=== PATIENT | male | born 1975 | race Caucasian/White ===

== ENCOUNTER 2022-09-14 05:54 | Observation (INO) ==
--- NOTE | 2022-09-09 12:07 | Anesthesiology Consultation ---
Date of Service September 09, 2022 Assessment & Plan (1) Encounter for pre-operative examination: COVID screening: Per assessment on 09/09: No known COVID-19 positive contacts or current COVID-19 related symptoms. Travel screen negative. At surgeon discretion if preop Covid testing being done. Chart Review Chart Review: Acceptable Risk for Surgery and Patient NOT seen in Pre Admission Testing History Surgery Operation Date: 09/14/22 10:15 Proposed Procedures p C6-C7 Anterior Cervical Discectomy and Fusion, Spinal Cord Monitoring - Rikki Gan DO Height/Weight Height: 5 ft 7 in Weight: 83.915 kg Allergies Allergy/AdvReac Type Severity Reaction Status Date / Time ketorolac [From Toradol] Allergy Mild Rash Verified 09/09/22 10: tramadol Allergy Mild Rash Verified 09/09/22 10:22 bee venom protein (honey bee) Allergy Unknown Unknown, Verified 09/09/22 12:04 childhood reaction Medications Home Medications Medication Instructions Recorded Confirmed Last Taken alprazolam 1 mg tablet (Xanax) 1 mg PO BID PRN Anxiety 02/10/21 09/09/22 02/09/21 citalopram 40 mg tablet 40 mg PO HS 02/10/21 09/09/22 02/09/21 lisdexamfetamine 60 mg capsule 60 mg PO QAM 02/10/21 09/09/22 02/09/21 (Vyvanse) hydrocodone 5 mg-acetaminophen 325 1 tab PO Q6H PRN Pain 09/09/22 09/09/22 Unknown mg tablet lansoprazole 15 mg capsule,delayed 15 mg PO QAM 09/09/22 09/09/22 Unknown release methocarbamol 500 mg tablet 500 mg PO TID 09/09/22 09/09/22 Unknown olanzapine 15 mg tablet (Zyprexa) 15 mg PO HS 09/09/22 09/09/22 Unknown Past Medical History Medical History ADHD Anxiety and depression Arthritis GERD (gastroesophageal reflux disease) Post traumatic stress disorder Spinal stenosis Past Family History Family History Other No family history of adverse response to anesthesia Past Surgical History Surgical History History of colonoscopy History of esophagogastroduodenoscopy (EGD) [place] teeth extracted Social History Smoking Status: Current every day smoker tobacco type: cigarettes Smoking cigarettes per day: 10 CIG DAILY>ADVISED Do You Dip or Chew Tobacco: No Hx Alcohol Use: No substance use type: does not use Lab Results Anesthesia Preop Results Results Anesthesia Widget: WBC 12.22 K/ul (4.8-10.8) H 09/08/22 Hgb 16.5 g/dl (14.0-18.0) 09/08/22 Hct 47.4 % (40.1-51.0) 09/08/22 Plt 330 K/uL (130-400) 09/08/22 Na 138 mmol/L (136-145) 09/08/22 K 4.4 mmol/L (3.5-5.1) 09/08/22 Cl 104 mmol/L (98-107) 09/08/22 CO2 28 mmol/L (21-32) 09/08/22 BUN 7 mg/dl (6-23) 09/08/22 Creat 0.90 mg/dl (0.6-1.4) 09/08/22 Glucose Level 99 mg/dl (70-99(Fasting)) 09/08/22 PT 10.1 Seconds (9.0-12.0) 09/08/22 INR 0.9 (0.9-1.1) 09/08/22 Urine Color Yellow 09/08/22 Urine Appearance Clear (Clear) 09/08/22 Urine pH 7.0 (4.5-7.5) 09/08/22 Urine Specific Portal 1.006 (1.000-1.030) 09/08/22 Urine Protein Negative (Negative) 09/08/22 Urine Glucose (UA) Negative (Negative) 09/08/22 Urine Ketones Negative (Negative) 09/08/22 Urine Blood Negative (Negative) 09/08/22 Urine Nitrite Negative (Negative) 09/08/22 Urine Bilirubin Negative (Negative) 09/08/22 Urine Urobilinogen Negative (Negative) 09/08/22 Urine Leukocyte Esterase Trace (Negative) H 09/08/22 Urine WBC (Auto) 0 /hpf (0-5) 09/08/22 Urine RBC (Auto) 0-4 /hpf (0-4) 09/08/22 Urine Hyaline Casts (Auto) 0 /lpf (0-5) 09/08/22 Urine Epithelial Cells (Auto) 0-5 /lpf (0-5) 09/08/22 Urine Bacteria (Auto) Negative (Negative) 09/08/22 Testing Electrocardiogram Date: 09/09/22 NSR with sinus arrhythmia at 67bpm. unconfirmed report. Chest X-Ray Date: 09/08/22 Findings: + NAD
--- NOTE | 2022-09-13 13:08 | History & Physical Report ---
Date of Service September 13, 2022 Assessment & Plan (1) Cervical stenosis of spinal canal: Plan: Assessment cervical spinal stenosis with radiculopathy. Plan at this time patient has marked neural compression at C6-C7 with progressive motor and sensory deficit and subsequent requires urgent attention. Patient is scheduled for anterior cervical discectomy and fusion C6-C7. History of Present Illness Chief Complaint: Neck and arm pain with weakness Primary Care Provider: Deon Bright DO This is a 46-year-old male that presents with chronic persistent neck and arm symptoms that have progressively worsened over the past year. He presents with significant radiculopathy notable weakness to his right hand grasp and tricep. Allergies Allergy/AdvReac Type Severity Reaction Status Date / Time ketorolac [From Toradol] Allergy Mild Rash Verified 09/09/22 10: tramadol Allergy Mild Rash Verified 09/09/22 10:22 bee venom protein (honey bee) Allergy Unknown Unknown, Verified 09/09/22 12:04 childhood reaction Home Medications Medication Instructions Recorded Confirmed Type alprazolam 1 mg tablet (Xanax) 1 mg PO BID PRN Anxiety 02/10/21 09/09/22 History citalopram 40 mg tablet 40 mg PO HS 02/10/21 09/09/22 History lisdexamfetamine 60 mg capsule 60 mg PO QAM 02/10/21 09/09/22 History (Vyvanse) hydrocodone 5 mg-acetaminophen 325 1 tab PO Q6H PRN Pain 09/09/22 09/09/22 History mg tablet lansoprazole 15 mg capsule,delayed 15 mg PO QAM 09/09/22 09/09/22 History release methocarbamol 500 mg tablet 500 mg PO TID 09/09/22 09/09/22 History olanzapine 15 mg tablet (Zyprexa) 15 mg PO HS 09/09/22 09/09/22 History Past Med/Surg History Medical History ADHD Anxiety and depression Arthritis GERD (gastroesophageal reflux disease) Post traumatic stress disorder Spinal stenosis Surgical History History of colonoscopy History of esophagogastroduodenoscopy (EGD) [place] teeth extracted Family History Other No family history of adverse response to anesthesia Social History Smoking Status: Current every day smoker Tobacco Type: Cigarettes Cigarettes Per Day: 10 CIG DAILY>ADVISED; Second Hand Exposure: No; Hx Alcohol Use: No Preferred Language: Welsh Public Transit Specialist Required: No Beliefs That Will Affect Care: None Current Living Situation: Family Feels Safe at Home: Yes Assistive Devices: Glasses Physical Exam Physical Exam: Patient is alert and oriented in obvious distress. He demonstrates 4/5 right tricep and grasp compared to 5 5 on the left. He is markedly positive [place] sign to the right and some significant sensory deficits on the right compared to the left. Deep tendon reflexes are absent.
[2022-09-14] MEDS ORDERED: ACETAMINOPHEN 500 MG TAB PO SCH (06:00)
[2022-09-14] MEDS ORDERED: LR 15ML/HR IV SCH (06:00)
[2022-09-14] MEDS ORDERED: ceFAZolin 2000MG 2,000 MG/15 ML SYR IV SCH (06:00)
[2022-09-14] MEDS ORDERED: GABAPENTIN 900 MG DOSE PO SCH (06:00)
[2022-09-14] MEDS ORDERED: KETAMINE 50 MG/5 ML SYRINGE ONE (06:55)
[2022-09-14] MEDS ORDERED: HYDROmorphone INJ 2 MG/ML SYR/VIAL ONE (06:55)
[2022-09-14] MEDS ORDERED: fentaNYL citrate 100 MCG/2 ML VIAL ONE (06:55)
[2022-09-14] MEDS ORDERED: MIDAZOLAM HCL 1 MG/ML 2ML VIAL ONE (06:55)
[2022-09-14] MEDS ORDERED: ceFAZolin 330 MG/ML 1 GM VIAL ONE (07:08)
[2022-09-14] MEDS ORDERED: DEXAMETHASONE SOD INJ 4 MG/ML VIAL ONE (07:09)
[2022-09-14] MEDS ORDERED: SUCCINYLCHOLINE CHLORIDE 20 MG/ML 10 ML VIAL IV ONE (07:09)
[2022-09-14] MEDS ORDERED: LIDOCAINE 2% MPF LOCAL 5 ML VIAL INFIL ONE (07:09)
[2022-09-14] MEDS ORDERED: GLYCOPYRROLATE 0.2 MG/ML VIAL ONE (07:09)
[2022-09-14] MEDS ORDERED: PROPOFOL IV EMULSION 10 MG/ML 20 ML VIAL IV ONE ×2 (07:09→08:08)
[2022-09-14] MEDS ORDERED: ONDANSETRON INJ 2 MG/ML 2 ML VIAL ONE (07:09)
[2022-09-14] MEDS ORDERED: ATROPINE SULFATE 0.1 MG/ML 10ML SYR IV PRN (07:14)
[2022-09-14] MEDS ORDERED: ONDANSETRON INJ 2 MG/ML 2 ML VIAL IV PRN ×2 (07:14→11:37)
[2022-09-14] MEDS ORDERED: ePHEDrine sulfate 50 MG/ML AMP IV PRN (07:14)
--- NOTE | 2022-09-14 07:44 | History & Physical Bridge Note ---
Date of Service September 14, 2022 History & Physical Bridge Note I have examined the patient, reviewed the History & Physical and in the interval since the performance of the History & Physical I have noted the following changes of clinical significance: no changes noted
[2022-09-14] MEDS ORDERED: PHENYLEPHRINE 100MCG/ML 5ML SYR ONE (08:50)
[2022-09-14] MEDS ORDERED: FLOSEAL HEMOSTATIC MATRIX 10ML TOP ONE (08:57)
--- NOTE | 2022-09-14 09:11 | Operative Report ---
Post Operative Report Pre & Post Diagnosis Operation Date: 09/14/22 07:45 Pre-Op Diagnosis: Cervical spinal stenosis with radiculopathy Post-Op Diagnosis: Same I identified the patient and participated in the time-out.: Yes Procedure Operation Date: 09/14/22 07:45 Actual Procedures #1 anterior cervical discectomy with bilateral foraminotomies C6-C7. #2 anterior cervical arthrodesis C6-C7. #3 placement of Spira 9 mm cage filled with I factor to C6-C7. #4 application of K2 M plate and screws across C6-C7. Surgeon Rikki Gan, Ending Machine Operator None Estimated Blood Loss 5 Findings Consistent with Post-Op Diagnosis Specimens None Indications This is a 46-year-old male presents with above-mentioned diagnosis after failed course of nonoperative care is here for surgical invention. Description of Procedure Patient met with identified informed consent obtained. Patient was then taken to the operative suite underwent a patient placed in a supine position Nishant table head [place] desizing machine operator head end. All bony prominences well-padded eyes inspected to ensure no external pressure placed upon. This point the anterior cervical spine was prepped and draped in a sterile fashion. The assistance of fluoroscopy identify the C6-C7 disc base and a transverse incision was placed al asher the right anterior aspect of the cervical spinal lines region. Blunt dissection with assistance of bipolar cautery was then performed down to and exposing the anterior cervical spine at C6-C7. Self-retaining retractors placed. I then performed a complete discectomy C6-C7 down to the uncovertebral's bilaterally. [place] distracting pins utilized to assist in visualization. Removed all posterior annular fibers longitudinal ligament bilateral foraminotomies performed. Endplates burred to subcortically bone and a 9 spiral cage filled with I factor tapped in position. Distracting apparatus was removed and a K2 M plate and screws applied with the assistance of fluoroscopy. Incision was then copiously irrigated explored to ensure no demonstrate surrounding structures remaining bleeding. 10 round TOÑO drain inserted. The incision was then closed with 2 Vicryl in a fashion of 4 Monocryl for final skin closure. Steri-Strip sterile dressings placed. Patient waken taken to PACU in stable condition. Please note spinal cord monitoring was utilized at the procedure no changes noted. I attest to the content of the Intraoperative Record and any orders documented therein. Any exceptions are noted below.
--- NOTE | 2022-09-14 09:53 | Fluoroscopy Report ---
FL cervical 2-3V HISTORY: 46 years-old Male C6-C7 ACDF COMPARISON: None TECHNIQUE: 3 spot fluoroscopic images of the cervical spine were obtained utilizing 16.8 seconds fluo roscopy time FINDINGS: Endotracheal tube is noted with additional catheters or wires projected over the neck. Anterior plate and screw fusion is noted at what appears to be the C6/C7 level, however the study is limited second fausto to positioning of the shoulders on the lateral view. The visualized hardware appears intact. Imag es were submitted following completion of the surgery. IMPRESSION: Fluoroscopic assistance as above. ACT 112: Negative or not required by law. The above report was generated using voice recognition software. It may contain grammatical, syntax o r spelling errors. Electronically signed by: Edwin Bolaños M.D. 09/14/2022 9:51 AM
[2022-09-14] MEDS: fentaNYL citrate 100 MCG/2 ML VIAL IV PRN ×2 (10:13→10:23)
--- NOTE | 2022-09-14 11:36 | Anesthesiology Progress Note ---
Date of Service September 14, 2022 Anesthesia Post Procedure Vital Signs Vital Signs: Temp Pulse Pulse Resp BP Pulse Ox O2 Del Method 09/14/22 11:30 97.5 F L 82 14 114/80 98 Nasal Cannula 09/14/22 11:15 97.5 F L 75 13 114/83 93 Nasal Cannula 09/14/22 11:00 82 17 127/74 93 Nasal Cannula 09/14/22 10:50 94 H 14 119/86 94 Nasal Cannula 09/14/22 10:40 80 10 L 127/81 95 Nasal Cannula 09/14/22 10:20 89 13 126/93 93 Oxymask 09/14/22 09:50 88 12 126/97 91 Oxymask 09/14/22 10:30 97.5 F L 82 17 114/87 95 Nasal Cannula 09/14/22 10:10 91 H 9 L 133/83 96 Oxymask 09/14/22 10:00 108 H 16 165/113 H 95 Oxymask 09/14/22 09:40 85 12 139/97 91 Oxymask 09/14/22 09:30 97.3 F L 84 10 L 122/88 94 Oxymask 09/14/22 06:20 98.2 F 78 20 113/95 97 Room Air O2 Flow Rate 09/14/22 11:30 2 09/14/22 11:15 2 09/14/22 11:00 2 09/14/22 10:50 3 09/14/22 10:40 3 09/14/22 10:20 5 09/14/22 09:50 10 09/14/22 10:30 3 09/14/22 10:10 5 09/14/22 10:00 5 09/14/22 09:40 10 09/14/22 09:30 10 09/14/22 06:20 Pain Intensity Bilateral Medial Neck: Pain Intensity: 0 Transfer of Care Handoff Completed per policy Notes Mental Status: alert / awake / arousable and participated in evaluation Patient Amnestic to Procedure: Yes Nausea / Vomiting: adequately controlled Pain: adequately controlled Airway Patency, RR, SpO2: stable & adequate BP & HR: stable & adequate Hydration State: stable & adequate Anesthetic Complications: no major complications apparent and Pt Satisfied with anesthetic care
[2022-09-14] MEDS ORDERED: dexAMETHasone 8 MG in SYRINGE 0 ML IV PRN (11:37)
[2022-09-14] MEDS ORDERED: DO NOT ADMINISTER PNEUMOCOCCAL VACCINE PRN (11:37)
[2022-09-14] MEDS ORDERED: RACEPINEPHRINE 2.25% NEBU SOLN 0.5 ML VIAL INH PRN (11:37)
[2022-09-14] MEDS ORDERED: diphenhydrAMINE Capsule 25 MG CAP PO PRN (11:37)
[2022-09-14] MEDS ORDERED: PROMETHAZINE HCL 12.5 MG in SODIUM CHLORIDE 0.9% 50 ML IV PRN (11:37)
[2022-09-14] MEDS ORDERED: LORazepam 2 MG/1 ML VIAL IV PRN (11:37)
[2022-09-14] MEDS ORDERED: LORazepam 0.5 MG TAB PO PRN (11:37)
[2022-09-14] MEDS ORDERED: ALUMINUM/MAGNESIUM SUSP 30 ML UDC PO PRN (11:37)
[2022-09-14] MEDS ORDERED: hydrOXYzine HCl 25 MG TAB PO PRN (11:37)
[2022-09-14] MEDS ORDERED: NALOXONE HCL 0.4 MG/1 ML VIAL/CARP IV PRN (11:37)
[2022-09-14] MEDS ORDERED: METOCLOPRAMIDE HCL INJ 5 MG/ML 2 ML VIAL IV PRN (11:37)
[2022-09-14] MEDS ORDERED: SOD PHOSPHATE/SOD BIPHOSPHATE ENEMA 132 ML BTL PR PRN (11:37)
[2022-09-14] MEDS ORDERED: bisacodyL 10 MG SUPP PR PRN (11:37)
[2022-09-14] MEDS ORDERED: ACETAMINOPHEN 500 MG TAB PO PRN (11:37)
[2022-09-14] MEDS ORDERED: ALPRAZolam 0.5 MG TABLET PO PRN (11:37)
[2022-09-14] MEDS ORDERED: MAGNESIUM HYDROXIDE SUSP 30 ML UDC PO PRN (11:37)
[2022-09-14] MEDS ORDERED: ONDANSETRON 4 MG OD TAB PO PRN (11:37)
[2022-09-14] MEDS ORDERED: ACETAMINOPHEN 1,000 MG/100 ML VIAL IV PRN (11:37)
[2022-09-14] MEDS ORDERED: FAMOTIDINE 20 MG TAB PO PRN (11:37)
[2022-09-14] MEDS ORDERED: DO NOT ADMINISTER FLU VACCINE PRN (11:37)
--- NOTE | 2022-09-14 12:28 | Hospitalist Consultation ---
Date of Consultation September 14, 2022 Assessment & Plan (1) Cervical stenosis of spinal canal: - Pain management, bowel regimen and DVT ppx per the primary team - PT/OT consults - Follow am CBC to monitor for acute blood loss, hgb 16.5 on 09/08/22, trend with am labs - Tolerating diet, last BM was yesterday (2) Tobacco abuse: - Will order nicotine patch, cessation encouraged (3) Post traumatic stress disorder: (4) Anxiety and depression: (5) ADHD: - Continue xanax, vyvanse, citalopram, zyprexa - pt has been on these medications for about 16 years, no new meds. Pt reports hs of having psycotic episodes but none recently. Denies current diagnosis of bipolar disorder due to classification in the DSM changing over the years. (6) GERD (gastroesophageal reflux disease): - Cont lansoprazole DVT: teds, scds, ambulatory CODE: FULL Dispo: From home, discharge per the primary team Thank you for involving us in the care of Mr. Leonard. Please do not hesitate to call with questions or concerns. At this time medicine service will follow along. Supervising Physician Co-Signing Physician Notes Patient seen and examined Agree with findings and plan as detailed by Melissa Cameron PA-C History of Present Illness Reason for Consultation: Medical management Requesting Physician: Dr. Gan Attending Physician: Rikki Gan, History of Present Illness This is a 46-year-old male with PMHx of spinal stenosis, GERD, arthritis, PTSD, ADHD, anxiety and depression, tobacco use, who presents for C6-C7 anterior cervical discectomy and fusion. Patient is doing well postoperatively. His and his [id number] are present at bedside. He denies having significant pain but just took some pain medication and little bit ago from nursing. He is tolerating Jell-O and clear liquid for lunch. Patient reports last bowel movement was last evening. Prior to his surgery he was having issues with balance and some falls, but denied ever having LOC or striking of the head. He denies any lightheadedness at this point. Patient does note that he has some throat irritation likely from intubation. We will order some Chloraseptic spray for him for such. Pt admits to smoking about 1/2 pack cigarettes daily, agreeable to nicotine patch and will ask for it if he think he needs it. Allergies Allergy/AdvReac Type Severity Reaction Status Date / Time ketorolac [From Toradol] Allergy Mild Rash Verified 09/14/22 06:18 tramadol Allergy Mild Rash Verified 09/14/22 06:18 bee venom protein (honey bee) Allergy Unknown Unknown, Verified 09/14/22 06:18 childhood reaction Home Medications Medication Instructions Recorded Confirmed Type alprazolam 1 mg tablet (Xanax) 1 mg PO BID PRN Anxiety 02/10/21 09/14/22 History citalopram 40 mg tablet 40 mg PO HS 02/10/21 09/14/22 History lisdexamfetamine 60 mg capsule 60 mg PO QAM 02/10/21 09/14/22 History (Vyvanse) hydrocodone 5 mg-acetaminophen 325 1 tab PO Q6H PRN Pain 09/09/22 09/14/22 History mg tablet lansoprazole 15 mg capsule,delayed 15 mg PO QAM 09/09/22 09/14/22 History release methocarbamol 500 mg tablet 500 mg PO TID 09/09/22 09/14/22 History olanzapine 15 mg tablet (Zyprexa) 15 mg PO HS 09/09/22 09/14/22 History hydrocodone 5 mg-acetaminophen 325 1 tab PO Q6H PRN pain #30 tabs 09/14/22 09/14/22 Rx mg tablet Patient History Medical History (Updated 09/14/22 @ 13:23 by Melissa Cameron PA-C) ADHD Anxiety and depression Arthritis GERD (gastroesophageal reflux disease) Post traumatic stress disorder Spinal stenosis Surgical History History of colonoscopy History of esophagogastroduodenoscopy (EGD) [place] teeth extracted Family History Other No family history of adverse response to anesthesia Social History Smoking Status: Current every day smoker Tobacco Type: Cigarettes Cigarettes Per Day: 10 CIG DAILY>ADVISED; Second Hand Exposure: No; Do You Dip or Chew Tobacco: No; Hx Alcohol Use: No Preferred Language: French Clinical Staff Rn Required: No Beliefs That Will Affect Care: None Current Living Situation: Family Feels Safe at Home: Yes Safety Concerns: Feels Safe At This Time Assistive Devices: Glasses Review of Systems Review of Systems: Constitutional: No fever, sweats or chills Eyes: No diplopia, no worsening or blurred vision ENT: normal hearing, no trouble swallowing Respiratory: No cough, sputum, dyspnea at rest or on exertion Cardiovascular: No chest pain, tightness or palpitations Abdomen: No pain, nausea, vomiting, diarrhea or constipation Musculoskeletal: No joint pain, calf pain, swelling Neurologic: No weakness, numbness/tingling, or balance problems Psychiatric: No anxiety or depression Skin: No rash or itch Physical Exam Physical Exam: General: awake, alert, no apparent distress Head: Normocephalic, atraumatic Neck: cervical collar brace in place, TOÑO drain, dressing is C/D/I ENT: PERRL, EOMI, no pharyngeal exudate, mucous membranes moist Chest: Slightly diminished throughout to auscultation, on 2 L via NC with sats a 93%, no adventitious breath sounds Cardiac: Regular rate and rhythm, no murmur, no JVD, normal peripheral pulses, good capillary refill Abdominal: NABS x 4 quadrants, soft, nondistended, nontender to palpation, no rebound or guarding Extremities: Normal inspection, no peripheral edema or erythema, calfs nontender to palpation Psych: Normal mood and affect Neuro: AAO x 3, strength intact bilaterally and rated 5/5, no motor deficits, speech is clear, no peripheral sensory deficits Results & Data Results & Data ([facility]) Vital Signs (Past 12 Hours) Vital Signs Temp Pulse Pulse Resp BP Pulse Ox O2 Del Method 09/14/22 12:00 36.4 C L 79 10 L 119/73 99 Nasal Cannula 09/14/22 11:30 36.4 C L 82 14 114/80 98 Nasal Cannula 09/14/22 11:15 36.4 C L 75 13 114/83 93 Nasal Cannula 09/14/22 11:00 82 17 127/74 93 Nasal Cannula 09/14/22 10:50 94 H 14 119/86 94 Nasal Cannula 09/14/22 10:40 80 10 L 127/81 95 Nasal Cannula 09/14/22 10:20 89 13 126/93 93 Oxymask 09/14/22 09:50 88 12 126/97 91 Oxymask 09/14/22 10:30 36.4 C L 82 17 114/87 95 Nasal Cannula 09/14/22 10:10 91 H 9 L 133/83 96 Oxymask 09/14/22 10:00 108 H 16 165/113 H 95 Oxymask 09/14/22 09:40 85 12 139/97 91 Oxymask 09/14/22 09:30 36.3 C L 84 10 L 122/88 94 Oxymask 09/14/22 06:20 36.8 C 78 20 113/95 97 Room Air O2 Flow Rate 09/14/22 12:00 2 09/14/22 11:30 2 09/14/22 11:15 2 09/14/22 11:00 2 09/14/22 10:50 3 09/14/22 10:40 3 09/14/22 10:20 5 09/14/22 09:50 10 09/14/22 10:30 3 09/14/22 10:10 5 09/14/22 10:00 5 09/14/22 09:40 10 09/14/22 09:30 10 09/14/22 06:20
[2022-09-14] MEDS: ALLERGY Noted to ORDERED Medication SCH ×2 (12:29→12:30)
[2022-09-14] MEDS: LACTATED RINGER'S 1,000 ML IV SCH ×2 (12:42→22:38)
[2022-09-14] MEDS: HYDROCODONE/ACETAMOPHEN 5/325MG TAB PO PRN ×2 (12:48→17:43)
[2022-09-14] MEDS ORDERED: CHLORASEPTIC 1.4% SOLN 180 ML BTL MT PRN (13:13)
[2022-09-14] MEDS: dexAMETHasone 6 MG in SYRINGE 0 ML IV SCH ×2 (13:20→19:49)
[2022-09-14] MEDS: MoRPHine SULFATE 4 MG/ML 1 ML CARP\\VIAL IV PRN ×2 (13:52→19:49)
[2022-09-14] MEDS: METHOCARBAMOL 500 MG TABLET PO SCH ×2 (15:00→19:52)
[2022-09-14] MEDS: ceFAZolin 2000MG 2,000 MG/15 ML SYR IV SCH ×2 (15:00→22:41)
[2022-09-14] MEDS: NICOTINE 14 MG/24 HR PATCH TD SCH (16:46)
[2022-09-14] MEDS ORDERED: OLANZapine 5 MG TABLET PO SCH (21:00)
[2022-09-14] MEDS ORDERED: DOCUSATE SODIUM/SENNA 50/8.6MG TAB PO SCH (21:00)
[2022-09-14] MEDS ORDERED: CITALOPRAM 40 MG TAB PO SCH (21:00)
[2022-09-15] MEDS: ALLERGY Noted to ORDERED Medication SCH ×2 (01:46→01:47)
[2022-09-15] MEDS: dexAMETHasone 6 MG in SYRINGE 0 ML IV SCH (03:38)
[2022-09-15] MEDS: MoRPHine SULFATE 4 MG/ML 1 ML CARP\\VIAL IV PRN (05:16)
[2022-09-15] MEDS ORDERED: POLYETHYLENE (MIRALAX) 17 GM PACK PO SCH (06:00)
[2022-09-15 08:06] LABS: Hematocrit (blood only) 41.3 % (40.1-51.0); Hemoglobin 14.3 g/dl (14.0-18.0); Mean Corpuscular Hemoglobin 32.9 pg (25.0-34.0); Mean Corpuscular Hgb Conc 34.6 g/dL (32.0-36.0); Mean Corpuscular Volume 95.2 fL (80.0-100.0); Mean Platelet Volume 8.9 fL (9.4-12.4); Platelet Count 289 K/uL (130-400); RDW Coefficient of Variation 11.7 % (11.5-14.5); RDW Standard Deviation 40.6 fL (36.4-46.3); Red Blood Count 4.34 M/uL (4.63-6.08)
[2022-09-15] MEDS: METHOCARBAMOL 500 MG TABLET PO SCH (08:28)
[2022-09-15] MEDS: NICOTINE 14 MG/24 HR PATCH TD SCH (08:28)
[2022-09-15 08:55] LABS: BUN Creatinine Ratio 8.7 (10-20); Calcium 8.5 mg/dl (8.5-10.1); Creatinine Clr Calc Pharmacy 135.8 ml/min; Est GFR (Non-African American) 113.8 ml/min; Potassium 3.8 mmol/L (3.5-5.1)
[2022-09-15] MEDS ORDERED: PANTOprazole 40 MG TAB PO SCH (09:00)
[2022-09-15] MEDS: HYDROCODONE/ACETAMOPHEN 5/325MG TAB PO PRN (09:50)
--- NOTE | 2022-09-15 10:19 | XRay Report ---
SINGLE VIEW CHEST CLINICAL HISTORY: Hypoxia FINDINGS: 2 AP, portable, upright chest radiographs are compared to study dated 09/08/2022. The cardi omediastinal silhouette is unremarkable. The lungs and pleural spaces are clear. No pneumothorax is s een. The bony thorax is grossly intact. Fusion hardware is noted in the lower cervical spine. A surgi lauren drain is in place. IMPRESSION: No active disease in the chest. ACT 112: Negative or not required by law. Electronically signed by: Marcello Humphreys M.D. 09/15/2022 10:18 AM
--- NOTE | 2022-09-15 10:55 | Hospitalist Progress Note ---
Date of Service September 15, 2022 Assessment & Plan (1) Cervical stenosis of spinal canal: Plan: Cervical spinal stenosis with radiculopathy S/P anterior cervical discectomy with bilateral foraminotomies by Dr. Gan on 09/14/2022 Pain management, bowel regimen and DVT ppx per the primary team Continue wound care Needs follow-up with orthopedics upon discharge (2) Tobacco abuse: Plan: - cessation encouraged (3) Post traumatic stress disorder: (4) Anxiety and depression: (5) ADHD: Plan: - Continue xanax, vyvanse, citalopram, zyprexa (6) GERD (gastroesophageal reflux disease): Plan: - Continue PPI DVT: Teds, scds, ambulatory Admission and Anticipated Discharge Date Admission Date: September 14, 2022 Subjective Patient is seen and examined at bedside States having some discomfort at surgical site- neck Had bowel movement Denies any chest pain, shortness of breath, dizziness, nausea, abdominal pain, odynophagia, dysphagia No other complaints Review of Systems Review of Systems: All systems reviewed & are unremarkable except as noted in Subjective Physical Exam Physical Exam: Physical Exam: Vitals signs as noted above General Appearance:Moderately built and nourished, no apparent distress Head: normocephalic, Atraumatic Eyes: normal inspection, EOMI Neck: supple, Trachea midline, + surgical site in dressing, drain Respiratory/Chest: Normal breath sounds, CTA, No accessory muscle use Cardiovascular: S1, S2, No murmur Abdomen/GI:Soft, Non tender, Bowel sounds present Extremities/Musculoskeletal:normal inspection, no edema Neurologic/Psych:AAOX3, grossly no focal neurological deficits Skin: normal color, warm, multiple tattoos Results & Data Results & [facility] ([facility]) Vital Signs (Past 12 Hours) Vital Signs Temp Pulse Pulse Resp BP Pulse Ox O2 Del Method 09/15/22 09:30 36.8 C 102 H 18 90 Nasal Cannula 09/15/22 07:20 Nasal Cannula 09/15/22 07:29 36.6 C 88 16 122/74 93 Nasal Cannula 09/15/22 07:00 98 H 20 91 Nasal Cannula 09/15/22 05:10 36.4 C L 91 H 16 131/75 94 Nasal Cannula 09/15/22 03:21 36.5 C 82 16 119/75 93 Nasal Cannula 09/15/22 01:01 36.4 C L 80 14 124/74 93 Nasal Cannula 09/14/22 23:12 36.5 C 63 16 111/69 93 Nasal Cannula 09/14/22 23:10 36.4 C L 78 16 102/66 91 Nasal Cannula 09/14/22 23:06 80 92 Nasal Cannula O2 Flow Rate 09/15/22 09:30 4 09/15/22 07:20 4 09/15/22 07:29 4 09/15/22 07:00 5 09/15/22 05:10 3 09/15/22 03:21 3 09/15/22 01:01 3 09/14/22 23:12 2 09/14/22 23:10 3 09/14/22 23:06 3 Laboratory Results Short CBC 09/15/22 Range/Units 07:43 WBC 22.00 H (4.8-10.8) K/ul Hgb 14.3 (14.0-18.0) g/dl Hct 41.3 (40.1-51.0) % Plt Count 289 (130-400) K/uL BMP 09/15/22 07:43 Sodium 140 Potassium 3.8 Chloride 103 Carbon Dioxide 29 BUN 6 Creatinine 0.69 Glucose 168 H Calcium 8.5
--- NOTE | 2022-09-15 15:12 | Discharge Summary ---
Date of Service September 15, 2022 Admission HPI Per Admitting Provider This is a 46-year-old male that presents with chronic persistent neck and arm symptoms that have progressively worsened over the past year. He presents with significant radiculopathy notable weakness to his right hand grasp and tricep. Principal Diagnosis Cervical spinal stenosis with radiculopathy Discharge Data Allergies Allergy/AdvReac Type Severity Reaction Status Date / Time ketorolac [From Toradol] Allergy Mild Rash Verified 09/14/22 06:18 tramadol Allergy Mild Rash Verified 09/14/22 06:18 bee venom protein (honey bee) Allergy Unknown Unknown, Verified 09/14/22 06:18 childhood reaction Consultations 09/14/22 11:37 Consult Hospitalist Routine Procedures Performed Operation Date: 09/14/22 07:45 Actual Procedures p C6-C7 Anterior Cervical Discectomy and Fusion, Spinal Cord Monitoring(Not Applicable) - Rikki Gan DO Ordered Studies 09/14/22 07:00 FL cervical 2-3V Routine Hospital Course (1) Cervical stenosis of spinal canal: Patient and her cervical discectomy and fusion tolerated this well was taken to the orthopedic for postop labor postop day 1 and swallowing well no hoarseness. TOÑO drain decreasing appropriately. Subsequently discharged home. Discharge orders instructions from the chart for further review. Total Time Total Time Spent Total Time Spent (In Minutes): 20 minutes Discharge Plan Discharge Items Patient Disposition: Home - Self-Care Reason For Visit: Spinal Stenosis, Cervical Region Discharge Diagnosis: Cervical spinal stenosis with radiculopathy Activity: As commented below Non-emergency contact: Primary Care Provider Call non-emergency contact if: you have any medication questions Follow-up/Referrals: Deon Bright DO [Primary Care Provider] - Diet: Regular Addtl Attending Provider Instructions: ACTIVITY RECOMMENDATIONS: SELF CARE INSTRUCTIONS AFTER CERVICAL FUSIONS 1. No smoking. Smoking drastically decreases the chance of a solid fusion. 2. No bending, lifting more than 5 pounds, or twisting (roll like a log when turning in bed). 3. You may shower 3 days after surgery. Thoroughly dry wound. Do not soak in the tub. 4. Cervical collar: Must be worn at all times including sleeping. You may remove the brace only to bath, eat and if you are sitting in a recliner. 5. Please walk as much as you can for exercise. Gradually increase the distance that you walk as your endurance increases. SPECIAL CARE INSTRUCTIONS: VERY IMPORTANT TO READ AND REVIEW A. Do not take any anti-inflammatory medications (i.e. Indocin, Advil, Aspirin, Naprosyn, Aleve, Motrin, etc.) as these may inhibit the chance of a solid fusion. Tylenol is okay to take. B. Your surgical incision has been closed with a cosmetic suture under the skin that will dissolve in about 6 weeks. In 14 days, you can use a pair of clean scissors and cut the suture that is left outside of the skin at the ends of your incision. C. Complications are uncommon, but please contact us if you have any signs or symptoms of: 1. wound infection (fever higher than 102.5 degrees F, redness, separation of wound, drainage, or increasing pain from the incision) 2. blood clots in legs (pain, swelling, redness and warmth in legs) 3. urinary tract infection (fever higher than 102.5 degrees, burning upon urination or increased frequency of urination) 4. nerve problems (inability to walk on your toes or heels, numbness, loss of bowel or bladder control) 5. any other symptoms that concern you. D. Please call the office at if you have any concerns or questions about your operation or recovery. MANAGING PAIN AFTER SPINAL SURGERY 1. Narcotic medication is intended for short-term use and will be provided for surgical pain. Surgical pain usually lasts for a period of 4-6 weeks. Narcotic medication includes Percocet, Vicodin, Darvocet, Tylenol #3 or Lortab. 2. Longer-term pain is more appropriately treated with non-narcotic medication such as Tylenol ES. 3. Muscle spasm is not appropriately treated with narcotics. Muscle relaxers such as Soma, Flexeril or Skelaxin can be used along with Tylenol ES. 4. Remember that we all live with some "aches and pains". This is not unusual or uncommon after an injury or as we get older. 5. We will provide appropriate medication within the normal guidelines of their prescribed use. We will also be very cautious and aware of potential abuse and extended duration of patients' medication needs. 6. Please allow 2-3 days to process refills. Prescriptions will not be mailed but must be picked up at the office. FOLLOW UP VISIT: Keep your scheduled follow-up appointment. Any questions, please call the office at . Pending Studies at Discharge: No Stand-Alone Forms: My [facility], Pain - Opioid Pain Management Medications and DC Order Prescriptions: New hydrocodone-acetaminophen 5-325 mg tablet 1 tab PO Q6H PRN (Reason: pain) Qty: 30 0RF Rx Instructions: 1 tab PO PRN; Continued citalopram 40 mg tablet 40 mg PO HS alprazolam [Xanax] 1 mg tablet 1 mg PO BID PRN (Reason: Anxiety) Label Comments: takes at hs for sleep Vyvanse 60 mg capsule 60 mg PO QAM methocarbamol 500 mg Tablet 500 mg PO TID hydrocodone-acetaminophen 5-325 mg Tablet 1 tab PO Q6H PRN (Reason: Pain) olanzapine [Zyprexa] 15 mg Tablet 15 mg PO HS lansoprazole 15 mg Capsule,Delayed Release(Dr/Ec) 15 mg PO QAM Discharge Orders: Discharge Order (Routine); Ordered 09/15/22 Ordered By: Rikki Gan Admission Data Admit Date/Time: 09/14/22 09:14 Attending Provider: Rikki Gan Admit Provider: Rikki Gan Primary Care Provider: Deon Bright V. Other Providers: Becki Varela ; Bebo Sepulveda Other Interventions: Discharge Summary Assessment (RN) Last Done: 09/15/22 11:14
== END 2022-09-15 12:43 | disposition home or self-care (01) ==
LOC: ASU 05:54 → PACUINP 09:14 → INTOOBSV 09:14 → 3E 12:13